=== PATIENT | male | born 1995 | race Caucasian/White ===

== ENCOUNTER 2023-11-06 05:28 | Emergency (ER) | payer BC ==
[~2023-11-06] VITALS: Ht 190.5 cm; Wt 108.9 kg
[2023-11-06 05:54] VITALS: TEMP 98.3
[2023-11-06] MEDS: MECLIZINE HCL 12.5 MG TAB PO ONE (06:29)
[2023-11-06] MEDS: SODIUM CHLORIDE 0.9% 1000ML 1,000 ML IV STA (06:30)
[2023-11-06 06:33] LABS: BASOPHILS # (AUTO) 0.1 (0.0-0.1); BASOPHILS % 0.7 % (0.0-1.0); EOSINOPHILS # (AUTO) 0.2 (0.0-0.4); HEMATOCRIT 48.3 % (38.2-49.6); HEMOGLOBIN 16.2 g/dL (14.0-18.0); LYMPHOCYTES # (AUTO) 3.2 (1.0-3.2); MEAN CORPUSCULAR HEMOGLOBIN 28.4 pg (28-32); MEAN CORPUSCULAR HGB CONC 33.5 g/dL (31-35); MEAN CORPUSCULAR VOLUME 84.6 fL (81-99); MONOCYTES # (AUTO) 0.9 (0.2-0.8); MONOCYTES % 9.8 % (4.4-11.3); NEUTROPHILS # (AUTO) 4.7 (2.1-6.9); NEUTROPHILS % 51.7 % (38.7-80.0); PLATELET COUNT 276 x10e3/uL (140-360); RED BLOOD COUNT 5.71 x10e6/uL (4.3-5.7); RED CELL DISTRIBUTION WIDTH 12.8 % (11.7-14.4); WHITE BLOOD COUNT 9.08 x10e3/uL (4.8-10.8)
[2023-11-06 06:38] VITALS: PULSE 62; RESP 21; O2SAT 99
[2023-11-06 06:54] LABS: ALANINE AMINOTRANSFERASE 56 IU/L (0-55); ALBUMIN 4.3 g/dL (3.5-5.0); ALBUMIN/GLOBULIN RATIO 1.2 (0.8-2.0); ALKALINE PHOSPHATASE 68 IU/L (40-150); BILIRUBIN,TOTAL 0.5 mg/dL (0.2-1.2); BLOOD UREA NITROGEN 10 mg/dL (7-26); BUN/CREATININE RATIO 10 (6-25); CALCIUM 9.3 mg/dL (8.4-10.2); CARBON DIOXIDE 24 mmol/L (22-29); CHLORIDE 104 mmol/L (98-107); CREATININE, SERUM 1.01 mg/dL (0.72-1.25); EST GLOMERULAR FILTRATION RATE 105 ML/MIN (>=60); GLUCOSE 116 mg/dL (74-118); SODIUM 138 mmol/L (136-145); TOTAL PROTEIN 7.9 g/dL (6.5-8.1)
[2023-11-06 07:02] LABS: TROPONIN I < 0.001 ng/mL (0-0.300)
[2023-11-06] MEDS ORDERED: MECLIZINE HCL12.5 MG PO (08:12)
== END 2023-11-06 08:38 | disposition home or self-care (01) ==
LOC: ER 05:35
DX: R42 Dizziness and giddiness (principal)
CPT/HCPCS: 36415; 70450; 80053; 83735; 84484; 85025; 93005; 99284; J7030; J8597

== ENCOUNTER 2024-07-20 18:40 | Emergency (ER) | payer BC ==
[~2024-07-20] VITALS: Ht 190.5 cm; Wt 113.4 kg
[~2024-07-20 18:40] MED LIST: MECLIZINE HCL12.5 MG PO
[2024-07-20 18:50] VITALS: PULSE 69; RESP 20; TEMP 98.3
[2024-07-20 19:57] LABS: CORONAVIRUS COVID-19 AG NEGATIVE (NEGATIVE); INFLUENZA A AG NEGATIVE (NEGATIVE); INFLUENZA B AG NEGATIVE (NEGATIVE); STREPTOCOCCUS GRP A ANTIGEN NEGATIVE (NEGATIVE)
[2024-07-20] MEDS ORDERED: AZITHROMYCIN250 MG PO (20:14)
[2024-07-20] MEDS ORDERED: VENTOLIN HFA18 GM INH (20:14)
[2024-07-20] MEDS ORDERED: PREDNISONE20 MG PO (20:14)
[2024-07-20 20:21] VITALS: BP 130/73; PULSE 52; RESP 19; TEMP 97.9; O2SAT 100
== END 2024-07-20 20:20 | disposition home or self-care (01) ==
LOC: ER 18:44
DX: R06.02 Shortness of breath (principal); J06.9 Acute upper respiratory infection, unspecified; F41.9 Anxiety disorder, unspecified
CPT/HCPCS: 83518; 87070; 99283